=== PATIENT | female | born 1955 | race Caucasian/White ===

== ENCOUNTER 2018-06-11 07:11 | Outpatient (CLI) | payer MEDICARE, BC, SELFPAY ==
[2018-06-11 07:40] LABS: Abs Immature Grans 0.01 k/cumm (0.0-0.09); Absolute Basophil Count 0.02 k/cumm (0.0-0.2); Absolute Eosinophil Count 0.15 k/cumm (0.0-0.7); Absolute Lymphocyte Count 1.72 k/cumm (1.2-3.4); Absolute Monocyte Count 0.57 k/cumm (0.11-0.7); Absolute Neutrophil Count 4.25 k/cumm (1.2-6.7); Basophils % 0.3; Eosinophils % 2.2; HCT 41.3 % (36.0-46.0); HGB 13.8 g/dL (12.0-15.5); Immature Grans % 0.1; Lymphocytes % 25.6; Mean Corp. HGB Concentration 33.4 g/dL (32.0-36.0); Mean Corpuscular Hemoglobin 28.3 pg (27.0-33.0); Mean Corpuscular Volume 84.6 fL (80-95); Mean Platelet Volume 9.7 fL (8.0-11.0); Monocytes % 8.5; Neutrophils % 63.3; Platelet Count 290 x1000/uL (130-400); RBC 4.88 m/cumm (4.00-5.20); RBC Distribution Width 13.2 % (11.7-14.6); White Blood Cell Count 6.72 k/cumm (4.4-10.8)
[2018-06-11 08:39] LABS: ALT 23 U/L (12-78); AST 17 U/L (15-37); Alkaline Phosphatase 74 U/L (46-116); Anion Gap 8.2 mmol/L (3-11); BUN 14 mg/dL (7-18); Bilirubin, Total 0.6 mg/dL (0.2-1.0); CO2 28.8 mmol/L (21.0-32.0); CREATININE 0.71 mg/dL (0.55-1.02); Calcium 9.1 mg/dL (8.5-10.1); Chloride 101 mmol/L (98-107); Cholesterol 152 mg/dL (50-200); Glucose 108 mg/dL (70-100); HDL Cholesterol 78 mg/dL (40-60); LDL CHOLESTEROL 61 mg/dL (<100); Sodium 138 mmol/L (136-145); TSH 3.74 uIU/mL (0.358-3.74); Total Protein 7.3 g/dL (6.4-8.2); Triglyceride 34 mg/dL (30-150)
[2018-06-11 08:53] LABS: Vitamin D 25 Total 43.3 ng/ml (30-100)
[2018-06-11 11:17] LABS: Hemoglobin A1C 5.6 % (4.5-6.2)
== END 2018-06-11 07:31 ==
PROVIDERS: PCP Internal Medicine; Visit Provider Internal Medicine
DX: E78.5 Hyperlipidemia, unspecified (principal); I10 Essential (primary) hypertension; E55.9 Vitamin D deficiency, unspecified; E11.9 Type 2 diabetes mellitus without complications
CPT/HCPCS: 36415; 80053; 80061; 82306; 83721; 83036; 84443; 85025

== ENCOUNTER 2019-05-10 02:29 | Outpatient (CLI) | payer OTHER, SELFPAY ==
--- NOTE | 2019-05-10 11:36 | DI.MAMMO_ITS ---
SYMPTOMS/DIAGNOSIS: SCREENING, Z12.31 MAMMOGRAM: Mammograms were interpreted according to the usual protocol including computer analysis with CAD system, tomosynthesis and C view imaging. The breasts are of moderate density with fairly symmetrical distribution of fibroglandular tissue. No dominant mass identified in either breast. A group of benign-appearing microcalcifications seen in the medial retroareolar portion of right breast on CC view is unchanged in comparison with previous examination of April 2018. No significant change seen in either breast. CONCLUSION: No specific evidence of malignancy at this time. Routine screening examinations are suggested at yearly intervals in this age group according to the ACS/ACR guidelines. Category 1, breast density category B. MQSA ASSESSMENT OF FINDINGS: Negative. Category 1. Patient will receive a letter notifying them of these results. BI-RADS category B. There are scattered areas of fibroglandular density.
== END 2019-05-10 02:49 ==
PROVIDERS: PCP Internal Medicine; Visit Provider Internal Medicine
DX: Z12.31 Encounter for screening mammogram for malignant neoplasm of breast (principal)
CPT/HCPCS: 77063; 77067

== ENCOUNTER 2019-06-05 07:30 | Outpatient (CLI) | payer OTHER, SELFPAY ==
[2019-06-05 07:53] LABS: Abs Immature Grans 0.01 k/cumm (0.0-0.09); Absolute Basophil Count 0.04 k/cumm (0.0-0.2); Absolute Eosinophil Count 0.15 k/cumm (0.0-0.7); Absolute Lymphocyte Count 1.62 k/cumm (1.2-3.4); Absolute Monocyte Count 0.43 k/cumm (0.11-0.7); Absolute Neutrophil Count 2.08 k/cumm (1.2-6.7); Basophils % 0.9; Eosinophils % 3.5; Immature Grans % 0.2; Lymphocytes % 37.4; Mean Corp. HGB Concentration 33.3 g/dL (32.0-36.0); Mean Corpuscular Hemoglobin 28.2 pg (27.0-33.0); Mean Corpuscular Volume 84.6 fL (80-95); Mean Platelet Volume 9.8 fL (8.0-11.0); Monocytes % 9.9; Neutrophils % 48.1; Platelet Count 301 x1000/uL (130-400); RBC 4.61 m/cumm (4.00-5.20); RBC Distribution Width 13.9 % (11.7-14.6); White Blood Cell Count 4.33 k/cumm (4.4-10.8)
[2019-06-05 08:40] LABS: ALT 20 U/L (14-59); AST 14 U/L (15-37); Albumin 3.9 g/dL (3.4-5.0); Alkaline Phosphatase 58 U/L (46-116); Anion Gap 8.1 mmol/L (3-11); BUN 13 mg/dL (7-18); Bilirubin, Total 0.5 mg/dL (0.2-1.0); CO2 28.9 mmol/L (21.0-32.0); CREATININE 0.69 mg/dL (0.55-1.02); Calcium 9.2 mg/dL (8.5-10.1); Calculated LDL 76 mg/dL; Chloride 100 mmol/L (98-107); Cholesterol 156 mg/dL (50-200); Glucose 102 mg/dL (70-100); HDL Cholesterol 74 mg/dL (40-60); Potassium 4.2 mmol/L (3.5-5.1); Sodium 137 mmol/L (136-145); TSH 3.76 uIU/mL (0.36-3.74); Total Protein 7.1 g/dL (6.4-8.2); Triglyceride 30 mg/dL (30-150)
[2019-06-05 09:03] LABS: Hemoglobin A1C 5.8 % (4.5-6.2)
[2019-06-06 04:47] LABS: Vitamin D 25 Total 41.6 ng/ml (30-100)
== END 2019-06-05 07:50 ==
PROVIDERS: PCP Internal Medicine; Visit Provider Internal Medicine
DX: I10 Essential (primary) hypertension (principal); E78.2 Mixed hyperlipidemia; R73.09 Other abnormal glucose; E55.9 Vitamin D deficiency, unspecified
CPT/HCPCS: 36415; 80053; 80061; 82306; 83036; 84443; 85025

== ENCOUNTER 2021-02-15 02:30 | Outpatient (CLI) | payer OTHER, SELFPAY ==
--- NOTE | 2021-02-15 | DI.MAMMO_ITS ---
Exam(s) MAMMO SCREENING EXAM: MAMMO SCREENING CLINICAL HISTORY: SCREENING, Z12.31. TECHNIQUE: Bilateral full field digital CC and MLO mammographic images were obtained with 3D tomosyn thesis and utilizing computer aided detection (CAD). COMPARISON: Prior mammograms dating back to 2010, the most recent being May 2019. FINDINGS: Fibroglandular tissue is moderately dense. There is a group of microcalcifications in the right breast slightly medial of center and 0.5 cm in f rom the nipple which is unchanged from prior studies and therefore benign. No new significant radiograph findings in left breast. In the right breast there is a small nodular density measuring approximately 5 x 3 millimeters locate d 6 cm in from the nipple on the MLO view, more evident on prior studies. Possibly a new benign intr amammary lymph node. In addition, there is an oval noncalcified well-defined nodular density in the immediate retroareolar region of the right breast which measures 1.4 by 0.8 cm. More evident on prior studies. No malignant-appearing microcalcification groups is region or elsewhere in either breast. No new arc hitectural distortion or skin thickening-traction. IMPRESSION: Moderately dense fibroglandular tissue. No obvious radiographic evidence of malignancy in left breas t. Two nodular densities right breast as described above. Spot compression views and ultrasound of the right breast recommended. BI-RADS Category 0 - Assessment Incomplete: Need additional imaging evaluation Breast Density - Category C - Heterogeneously dense Breast density Category C or D implies that the patient has dense breast tissue. Dense breast tissue can make it harder to find cancer on a mammogram. Dense breast tissue is also associated with an incr eased risk of breast cancer. This information about the result of the mammogram report was provided to the patient to raise their awareness. Use this report when you speak with the patient about their risks for breast cancer, which includes their family history. At that time, you may recommend additional screening tests (Ultrasoun d or MRI) as these tests may add significant information. A negative radiographic report should not delay biopsy if a dominant or clinically suspicious mass is present. Up to ten percent of cancers are not identified on mammography. A negative report may reinforce clinical impression. Adenosis and dense breasts may obscure an underlying neoplasm. False positive reports average 6 to 10%. Patient will receive a letter notifying them of these results.
--- NOTE | 2021-02-15 | DI.RAD_ITS ---
Exam(s) XR CHEST 2V PA LATERAL EXAM: XR CHEST 2V PA LATERAL CLINICAL HISTORY: CHEST TIGHTNESS,R07.89. TECHNIQUE: 2D digital imaging was performed. COMPARISON: No exams were available for comparison FINDINGS: Heart size is normal. Left lung is clear. However, there is a mass density in right infrahilar region right middle lobe with silhouetting of th e right heart border. This measures approximately 6 by 3 cm. No pleural effusions. IMPRESSION: There is a concerning right para-infrahilar mass. Contrast infused chest CT scan is recommended. DATA REPOSITORY: RADIATION DOSE DELIVERED:
== END 2021-02-15 02:50 ==
PROVIDERS: PCP Internal Medicine; Visit Provider Internal Medicine
DX: Z12.31 Encounter for screening mammogram for malignant neoplasm of breast (principal); R92.8 Other abnormal and inconclusive findings on diagnostic imaging of breast; R07.89 Other chest pain; R91.8 Other nonspecific abnormal finding of lung field
CPT/HCPCS: 77063; 77067; 71046

== ENCOUNTER 2021-02-24 02:50 | Outpatient (CLI) | payer OTHER, SELFPAY ==
--- NOTE | 2021-02-24 | DI.US_ITS ---
Exam(s) US BREAST RT COMPLETE EXAM: US BREAST RT COMPLETE CLINICAL HISTORY: F/U MAMMO, TWO NODULAR DENSITIES,? LYMPH NODE. TECHNIQUE: Complete ultrasound of the right breast was performed incluing all 4 quadrants, the retro areolar region, and the ipsilateral axilla. COMPARISON: Prior mammograms were reviewed. Today's diagnostic mammogram was also reviewed FINDINGS: At the central 6 o'clock position there is a 5 x 5 millimeter round microcyst which corresponds to fi nding in the retroareolar region seen on the mammogram. At the 9 o'clock position there is a benign-appearing 7 x 3 millimeter lymph node which corresponds t o nodule on the mammogram. At 10 o'clock position there is a small hemorrhagic microcyst measuring 3 x 3 millimeters. There are no ominous solid lesions in all 4 quadrants. No significant adenopathy in the right axilla. IMPRESSION: Benign ultrasound findings in the right breast as described above which account for the findings desc ribed on the recent mammogram. Appropriate follow-up is repeat right breast imaging in 6 months. BI-RADS Category 3 - 6 month - Probably Benign Finding: Recommend follow-up mammography in 6 months Breast Density - Category C - Heterogeneously dense Breast density Category C or D implies that the patient has dense breast tissue. Dense breast tissue can make it harder to find cancer on a mammogram. Dense breast tissue is also associated with an incr eased risk of breast cancer. This information about the result of the mammogram report was provided to the patient to raise their awareness. Use this report when you speak with the patient about their risks for breast cancer, which includes their family history. At that time, you may recommend additional screening tests (Ultrasoun d or MRI) as these tests may add significant information. A negative radiographic report should not delay biopsy if a dominant or clinically suspicious mass is present. Up to ten percent of cancers are not identified on mammography. A negative report may reinforce clinical impression. Adenosis and dense breasts may obscure an underlying neoplasm. False positive reports average 6 to 10%. Patient will receive a letter notifying them of these results.
--- NOTE | 2021-02-24 | DI.MAMMO_ITS ---
Exam(s) MAMMO SCREEN CALL BACK UNI EXAM: MAMMO SCREEN CALL BACK UNI-RIGHT CLINICAL HISTORY: F/U MAMMO, MICROCALCIFICATIONS,NEW SMALL NODULAR DENSITIES,? NEW LYMPH NODE. TECHNIQUE: Unilateral spot mammographic images were obtained with 3D tomosynthesis and utilizing [employer] aided detection (CAD). . Right breast Ultrasound was also performed. COMPARISON: Prior mammograms were reviewed. This additional imaging was performed due to findings described on the recent screening mammogram of 02/15/2021. FINDINGS: Additional mammographic views performed todayreveal around 6 millimeter nodular density (which is ale wn to be a 6 o'clock position microcyst on today's ultrasound). The other retroareolar region findin g is less prominent on the additional spot mammographic 3D views today.The other nodular density is s hown to be a benign lymph node on today's ultrasound. The ultrasound also reveals another finding at 10 o'clock position which is a 3 millimeter hemorrhagi c microcyst. Please see separate ultrasound report IMPRESSION: Benign-appearing right breast findings. Please read separate breast ultrasound report Appropriate follow-up is to keep this patient on a yearly mammogram schedule, with earlier imaging if a self detected breast changes noted.. The patient was informed of these findings and recommendations prior to leaving the department today. BI-RADS Category 2 - Benign Findings Breast Density - Category B - Scattered areas of fibroglandular density Breast density Category C or D implies that the patient has dense breast tissue. Dense breast tissue can make it harder to find cancer on a mammogram. Dense breast tissue is also associated with an incr eased risk of breast cancer. This information about the result of the mammogram report was provided to the patient to raise their awareness. Use this report when you speak with the patient about their risks for breast cancer, which includes their family history. At that time, you may recommend additional screening tests (Ultrasoun d or MRI) as these tests may add significant information. A negative radiographic report should not delay biopsy if a dominant or clinically suspicious mass is present. Up to ten percent of cancers are not identified on mammography. A negative report may reinforce clinical impression. Adenosis and dense breasts may obscure an underlying neoplasm. False positive reports average 6 to 10%. Patient will receive a letter notifying them of these results.
== END 2021-02-24 03:10 ==
PROVIDERS: PCP Internal Medicine; Visit Provider Internal Medicine
DX: Z12.31 Encounter for screening mammogram for malignant neoplasm of breast (principal); R92.8 Other abnormal and inconclusive findings on diagnostic imaging of breast; N60.11 Diffuse cystic mastopathy of right breast; R59.0 Localized enlarged lymph nodes
CPT/HCPCS: 76642; 77063; 77067

== ENCOUNTER 2021-05-27 02:17 | Outpatient (CLI) | payer OTHER, SELFPAY ==
--- NOTE | 2021-05-27 | DI.DEXA_ITS ---
Exam(s) XR DEXA BONE DENSITY W/WO FELISA EXAM: XR DEXA BONE DENSITY W/WO FELISA CLINICAL HISTORY: OSTEOPOROSIS SCREENING, Z13.820 TECHNIQUE: Routine DEXA evaluation of the lumbar spine, hip, or forearm. COMPARISON: Prior DXA scans, most recent being July 2014 FINDINGS: Performed on a [employer] unit. Lateral image: No compression fracture evident. Lumbar Spine total T-score: 2.1 . prior 2013 reading was 0.7 Hip total T-score:-0.7. Prior 2013 reading was -0.3 Independent reading at the femoral neck yields a T-score of -0.8 Forearm total T-score: -0.2 IMPRESSION: Bone mineral density measures in the normal range. Fracture risk is low. Note: Any spine fracture indicates 5x risk for subsequent spine fracture and 2x risk for subsequent h ip fracture. World Health Organization criteria for BMD interpretation classify patients: Normal...... T- Score at or above -1.0 Osteopenic... T- Score between -1.0 and -2.5 Osteoporosis... T-Score at or below -2.5
== END 2021-05-27 02:37 ==
PROVIDERS: PCP Internal Medicine; Visit Provider Internal Medicine
DX: Z13.820 Encounter for screening for osteoporosis (principal); M85.88 Other specified disorders of bone density and structure, other site
CPT/HCPCS: 77080

== ENCOUNTER 2021-10-18 00:52 | Outpatient (CLI) | payer OTHER, SELFPAY ==
--- NOTE | 2021-10-18 14:24 | DI.MAMMO_ITS ---
Exam(s) MAMMO DIAGNOSTIC UNI US BREAST RT LIMITED EXAM: MAMMO DIAGNOSTIC UNI CLINICAL HISTORY: ABNL MAMMO R92.8 RIGHT BREAST. TECHNIQUE: Craniocaudal and mediolateral oblique Full Field Digital Mammography views with Computer Aided Diagnosis followed by Tomosynthesis and right breast ultrasound. COMPARISON: 2011 through 24 Feb 2021 FINDINGS: Mammography/Tomosynthesis: Masses/Architectural Distortion: None seen. Microcalcifictions: No suspicious pleomorphic-type are seen. Skin Thickening/Nipple Retraction: None. Right breast US: Echotexture: Normal appearance of the glandular tissue. Shadowing: No suspicious foci. Cyst: 6 millimeters cyst in the 6 o'clock subareolar region. 4 x 3 x 3 cluster of microcysts 10 o'cl ock position 7 cm from the nipple.. Solid lesions: Lymph node measuring 5 x 3 x 6 millimeters 9 o'clock position 8 cm from the nipple. Ductal dilation: None. IMPRESSION: 1. No evidence of malignancy is noted. Benign findings as noted above. 2. Unless there is more urgent need, follow-up screening mammography is recommended, as per [place] [employer] guidelines. Bilateral screening is due in 6 months. 3. The findings were discussed with the patient on the date of the examination. BI-RADS Category 2 - Benign Findings Breast Density - Category C - Heterogeneously dense Breast density category C or D implies that the patient has dense breast tissue. Dense breast tissue is very common and is not abnormal but dense breast tissue can make it harder to find cancer on a ma mmogram. Also, dense breast tissue may increase their breast cancer risk. This information about the result of the mammogram report was provided to the patient to raise their awareness. Use this report when you speak with the patient about their risks for breast cancer, which includes their family hist ory. At that time, you may recommend for more screening tests (Ultrasound or MRI) as they might be us eful based on their risk. A negative radiographic report should not delay biopsy if a dominant or clinically suspicious mass is present. Up to ten percent of cancers are not identified on mammography. A negative report may reinforce clinical impression. Adenosis and dense breasts may obscure an underlying neoplasm. False positive reports average 6 to 10%. Patient will receive a letter notifying them of these results.
== END 2021-10-18 01:12 ==
PROVIDERS: PCP Internal Medicine; Visit Provider Internal Medicine
DX: R92.8 Other abnormal and inconclusive findings on diagnostic imaging of breast (principal)
CPT/HCPCS: 76642; 77061; 77065; G0279

== ENCOUNTER → 2022-02-23 04:02 | Outpatient (CLI) | payer OTHER, SELFPAY ==
--- NOTE | 2022-02-23 13:17 | DI.MAMMO_ITS ---
Exam(s) MAMMO SCREENING EXAM: MAMMO SCREENING CLINICAL HISTORY: SCREENING, Z12.31 TECHNIQUE: Bilateral full field digital CC and MLO mammographic images were obtained with 3D tomosyn thesis and utilizing computer aided detection (CAD). COMPARISON: Available for comparison. FINDINGS: Masses/Architectural Distortion: Stable nodular densities are seen in the right breast. No suspiciou s masses or areas of architectural distortion are present. Microcalcifications: No suspicious pleomorphic-type are seen. Skin Thickening/Nipple Retraction: None. IMPRESSION: 1. No significant interval change with no specific features of malignancy noted. 2. Unless there is more urgent need, screening mammography is recommended, as per [place] [employer] guidelines. BI-RADS Category 1 - Negative Breast Density - Category C - Heterogeneously dense Breast density category C or D implies that the patient has dense breast tissue. Dense breast tissue is very common and is not abnormal but dense breast tissue can make it harder to find cancer on a ma mmogram. Also, dense breast tissue may increase their breast cancer risk. This information about the result of the mammogram report was provided to the patient to raise their awareness. Use this report when you speak with the patient about their risks for breast cancer, which includes their family hist ory. At that time, you may recommend for more screening tests (Ultrasound or MRI) as they might be us eful based on their risk. A negative radiographic report should not delay biopsy if a dominant or clinically suspicious mass is present. Up to ten percent of cancers are not identified on mammography. A negative report may reinforce clinical impression. Adenosis and dense breasts may obscure an underlying neoplasm. False positive reports average 6 to 10%. Patient will receive a letter notifying them of these results.
== END ==
PROVIDERS: PCP Internal Medicine; Visit Provider Internal Medicine
DX: Z12.31 Encounter for screening mammogram for malignant neoplasm of breast (principal)
CPT/HCPCS: 77063; 77067

== ENCOUNTER 2022-06-03 09:24 | Outpatient (REF) | payer OTHER, SELFPAY | END 2022-06-03 09:25 | disposition home or self-care (01) | LOC: LBN 09:24 | PROVIDERS: PCP Internal Medicine; Visit Provider Nurse Practitioner Family | DX: N39.0 Urinary tract infection, site not specified (principal) | CPT/HCPCS: 87077; 87086; 87186 ==

== ENCOUNTER 2023-04-14 14:57 | Outpatient (CLI) | payer MEDICARE, SELFPAY ==
--- NOTE | 2023-04-14 | DI.MAMMO_ITS ---
Exam(s) MAMMO SCREENING EXAM: MAMMO SCREENING CLINICAL HISTORY: SCREENING,M Z12.31. TECHNIQUE: Bilateral full field digital CC and MLO mammographic images were obtained with 3D tomosyn thesis and utilizing computer aided detection (CAD). COMPARISON: Prior mammograms were reviewed. FINDINGS: No new findings in the left breast. In the right breast on the CC view there is an asymmetric density measuring 5 x 5 mm located 4 cm in from the nipple, lateral of center. There are no malignant-appearing microcalcification groups in this region nor elsewhere in either yuki ast. There is no significant architectural distortion nor skin thickening-retraction. IMPRESSION: 1. No radiographic evidence of malignancy in left breast. 2. Right breast nodule more evident on CC images of present study. Spot compression view and ultraso und recommended. BI-RADS Category 0 - Assessment Incomplete: Need additional imaging evaluation Breast Density - Category C - Heterogeneously dense Breast density Category C or D implies that the patient has dense breast tissue. Dense breast tissue can make it harder to find cancer on a mammogram. Dense breast tissue is also associated with an incr eased risk of breast cancer. This information about the result of the mammogram report was provided to the patient to raise their awareness. Use this report when you speak with the patient about their risks for breast cancer, which includes their family history. At that time, you may recommend additional screening tests (Ultrasoun d or MRI) as these tests may add significant information. A negative radiographic report should not delay biopsy if a dominant or clinically suspicious mass is present. Up to ten percent of cancers are not identified on mammography. A negative report may reinforce clinical impression. Adenosis and dense breasts may obscure an underlying neoplasm. False positive reports average 6 to 10%. Patient will receive a letter notifying them of these results.
== END 2023-04-14 15:17 ==
LOC: DI 14:57
PROVIDERS: PCP Internal Medicine; Visit Provider Internal Medicine
DX: Z12.31 Encounter for screening mammogram for malignant neoplasm of breast (principal)
CPT/HCPCS: 77063; 77067

== ENCOUNTER 2023-04-18 01:35 | Outpatient (CLI) | payer MEDICARE, SELFPAY ==
--- NOTE | 2023-04-18 | DI.MAMMO_ITS ---
Exam(s) MG MAMMO SCREEN CALL BACK UNI US BREAST RT LIMITED EXAM: MG MAMMO SCREEN CALL BACK UNI and U/S breast RT limited CLINICAL HISTORY: F/U MAMMO, ASYMMETRIC DENSITY 5 CM FROM NIPPLE. TECHNIQUE: Craniocaudal and mediolateral oblique Full Field Digital Mammography views of the right b reast with Computer Aided Diagnosis followed by Tomosynthesis and right breast ultrasound. COMPARISON: Comparison is made with prior examinations. FINDINGS: Mammography/Tomosynthesis: Masses/Architectural Distortion: There is again seen a well-circumscribed nodule in the outer right b reast on the additional view. It measures approximately 5.2 mm. This can be seen on the mammogram f rom 02/15/2021. No areas of architectural distortion. Microcalcifictions: No suspicious pleomorphic-type are seen. Skin Thickening/Nipple Retraction: None. Limited right breast US: Echotexture: Normal appearance of the glandular tissue. Shadowing: No suspicious foci. Cyst: None. Solid lesions: At the 9 o'clock position 5 cm from the nipple, there is a 5 x 3.2 x 6.2 mm nodule pre sent. It is hypoechoic with a hyperechoic vascular eccentric nodule consistent with an intramammary lymph node. This likely corresponds to the mammographic abnormality. No suspicious solid lesions ar e seen. Ductal dilation: None. IMPRESSION: 1. No definite evidence of malignancy is noted. 2. A six-month follow-up right mammogram is requested for re-evaluation. Ultrasound may be indicated at that time. 3. The findings were discussed with the patient on the date of the examination. BI-RADS Category 3 - 6 month - Probably Benign Finding: Recommend follow-up imaging in 6 months Breast Density - Category C - Heterogeneously dense Breast density Category C or D implies that the patient has dense breast tissue. Dense breast tissue can make it harder to find cancer on a mammogram. Dense breast tissue is also associated with an incr eased risk of breast cancer. This information about the result of the mammogram report was provided to the patient to raise their awareness. Use this report when you speak with the patient about their risks for breast cancer, which includes their family history. At that time, you may recommend additional screening tests (Ultrasoun d or MRI) as these tests may add significant information. A negative radiographic report should not delay biopsy if a dominant or clinically suspicious mass is present. Up to ten percent of cancers are not identified on mammography. A negative report may reinforce clinical impression. Adenosis and dense breasts may obscure an underlying neoplasm. False positive reports average 6 to 10%. Patient will receive a letter notifying them of these results.
== END 2023-04-18 01:55 ==
LOC: DI 01:36
PROVIDERS: PCP Internal Medicine; Visit Provider Internal Medicine
DX: N63.25 Unspecified lump in the left breast, overlapping quadrants (principal); Z12.31 Encounter for screening mammogram for malignant neoplasm of breast
CPT/HCPCS: 76642; 77063; 77067

== ENCOUNTER → 2023-11-07 03:32 | Outpatient (CLI) | payer MEDICARE, SELFPAY ==
--- NOTE | 2023-11-07 | DI.MAMMO_ITS ---
Exam(s) MG MAMMO DIAGNOSTIC UNI EXAM: MG MAMMO DIAGNOSTIC UNI CLINICAL HISTORY: DIAGNOSTIC, 6 MO F/U, F/U ABNL MAMMO, R92.8 TECHNIQUE: Right cc and MLO mammogram images were performed according to the usual protocol includ ing computer analysis with CAD system, tomosynthesis and C-view imaging. COMPARISON: 2013 through 2022 FINDINGS: The right breast is composed of heterogeneously dense fibroglandular tissue No suspicious masses or suspicious microcalcifications are seen. Previously noted area of nodularity superior right breast has decreased significantly in size. No skin thickening or abnormal axillary lymph nodes are seen. IMPRESSION: BI-RADS Category 1, Negative mammogram Yearly screening mammography is recommended, due in 6 months.. Breast Density - Category C - Heterogeneously dense A negative radiographic report should not delay biopsy if a dominant or clinically suspicious mass is present. Up to ten percent of cancers are not identified on mammography. A negative report may reinforce clinical impression. Adenosis and dense breasts may obscure an underlying neoplasm. False positive reports average 6 to 10%. Patient will receive a letter notifying them of these results.
== END ==
PROVIDERS: PCP Internal Medicine; Visit Provider Internal Medicine
DX: Z12.31 Encounter for screening mammogram for malignant neoplasm of breast (principal)
CPT/HCPCS: 77061; 77065; G0279

== ENCOUNTER → 2024-04-15 02:44 | Outpatient (CLI) | payer MEDICARE, SELFPAY ==
--- NOTE | 2024-04-15 | DI.MAMMO_ITS ---
Exam(s) MAMMO SCREENING EXAM: MAMMO SCREENING CLINICAL HISTORY: Screening, Z12.31. TECHNIQUE: Bilateral full field digital CC and MLO mammographic images were obtained with 3D tomosyn thesis and utilizing computer aided detection (CAD). COMPARISON: Prior mammograms were reviewed. FINDINGS: There has been no significant change in the appearance and distribution of the fibroglandular tissue. Previously described small nodular density in the right breast is actually less evident on the presen t study, further evidence that it was benign. There are no new spiculated masses nor malignant appearing microcalcification groups. Benign-appearing microcalcification group in the right breast appears stable. There is no significant architectural distortion nor skin thickening-retraction. IMPRESSION: Benign findings. No radiographic evidence of malignancy. BI-RADS Category 2 - Benign Findings Breast Density - Category B - Scattered areas of fibroglandular density Breast density Category C or D implies that the patient has dense breast tissue. Dense breast tissue can make it harder to find cancer on a mammogram. Dense breast tissue is also associated with an incr eased risk of breast cancer. This information about the result of the mammogram report was provided to the patient to raise their awareness. Use this report when you speak with the patient about their risks for breast cancer, which includes their family history. At that time, you may recommend additional screening tests (Ultrasoun d or MRI) as these tests may add significant information. A negative radiographic report should not delay biopsy if a dominant or clinically suspicious mass is present. Up to ten percent of cancers are not identified on mammography. A negative report may reinforce clinical impression. Adenosis and dense breasts may obscure an underlying neoplasm. False positive reports average 6 to 10%. Patient will receive a letter notifying them of these results.
== END ==
PROVIDERS: PCP Nurse Practitioner Family; Visit Provider Internal Medicine
DX: Z12.31 Encounter for screening mammogram for malignant neoplasm of breast (principal)
CPT/HCPCS: 77063; 77067

== ENCOUNTER → 2024-05-06 14:15 | Outpatient (BNVA) | payer MEDICARE, SELFPAY | PROVIDERS: PCP Nurse Practitioner Family; Referring Provider Nurse Practitioner Family; Visit Provider Surgery | DX: K40.90 Unilateral inguinal hernia, without obstruction or gangrene, not specified as recurrent (principal) | CPT/HCPCS: 99203 ==

== ENCOUNTER 2024-05-06 19:25 | Outpatient (CLI) | payer MEDICARE, SELFPAY ==
[2024-05-06 16:21] LABS: Abs Immature Grans 0.01 10^3/uL (0.0-0.06); Absolute Basophil Count 0.03 10^3/uL (0.0-0.2); Absolute Eosinophil Count 0.15 10^3/uL (0.0-0.7); Absolute Lymphocyte Count 1.76 10^3/uL (1.2-3.4); Absolute Monocyte Count 0.47 10^3/uL (0.1-0.8); Absolute Neutrophil Count 3.45 10^3/uL (1.2-6.7); Basophils % 0.5 %; Eosinophils % 2.6 %; HGB 13.7 g/dL (11.2-15.7); Immature Grans % 0.2 %; MCH 28.1 pg (27.0-33.0); MCHC 33.4 % (32.0-36.0); MCV 84 fL (80-95); Neutrophils % 58.7 %; Platelet Count 245 10^3/uL (130-400); RBC 4.88 10^6/uL (3.93-5.22); RDW 12.8 % (11.7-14.6); RDW-SD 39.4 fL; WBC 5.87 10^3/uL (4.4-10.8)
[2024-05-06 18:16] LABS: Anion Gap 9.1 mmol/L (3-11); BUN 22 mg/dL (7-18); CO2 28.9 mmol/L (21.0-32.0); CREATININE 0.8 mg/dL (0.55-1.02); Chloride 100 mmol/L (98-107); Estimated GFR 79.22 (mL/min/1.73m2); Glucose 93 mg/dL (74-106); Potassium 4.1 mmol/L (3.5-5.1); Sodium 138 mmol/L (136-145)
== END 2024-05-06 19:26 | disposition home or self-care (01) ==
LOC: LBO 19:26
PROVIDERS: PCP Nurse Practitioner Family; Visit Provider Surgery
DX: I34.0 Nonrheumatic mitral (valve) insufficiency (principal); I49.49 Other premature depolarization; E78.5 Hyperlipidemia, unspecified; R73.03 Prediabetes; E55.9 Vitamin D deficiency, unspecified; K57.30 Diverticulosis of large intestine without perforation or abscess without bleeding; K40.90 Unilateral inguinal hernia, without obstruction or gangrene, not specified as recurrent; D25.9 Leiomyoma of uterus, unspecified; M19.90 Unspecified osteoarthritis, unspecified site; G56.01 Carpal tunnel syndrome, right upper limb; D49.89 Neoplasm of unspecified behavior of other specified sites; R11.2 Nausea with vomiting, unspecified; Z98.890 Other specified postprocedural states
CPT/HCPCS: 36415; 80048; 83735; 85025

== ENCOUNTER 2024-06-04 07:45 | Day surgery (SDC) | payer MEDICARE, SELFPAY ==
--- NOTE | 2024-06-03 21:43 | W.PM.DSUDISC ---
Date of service: 06/04/24 Time of Service: 11:25 Discharge Plan Disposition Patient Disposition: Home Condition: Good Discharge Details Reason For Visit: hernia repair Attending Provider: Julieth Burroughs Primary Care Provider: Shantal Davison Home Meds and New Rx's Prescriptions: New tramadol 50 mg tablet 50 mg PO Q4H PRNQty: 14 0RF celecoxib [Celebrex] 200 mg capsule 200 mg PO BID Qty: 60 3RF Continued amlodipine 10 mg tablet 10 mg PO DAILY acetaminophen [Tylenol Extra Strength] 500 mg tablet 500 mg PO DAILY PRN valsartan-hydrochlorothiazide 1 EACH tablet 1 tab-cap PO DAILY cholecalciferol (vitamin D3) [Vitamin D3] 2,000 UNIT capsule 1,000 unit PO DAILY rosuvastatin [Crestor] 5 mg tablet 5 mg PO DAILY ascorbic acid (vitamin C) 1,000 mg tablet,chewable 500 mg PO DAILY Discontinued celecoxib [Celebrex] 200 mg capsule 200 mg PO DAILY Discharge Instructions Additional Instructions: Dr. Burroughs HERNIA REPAIR ? POSTOPERATIVE INSTRUCTIONS Patients who have this type of surgery can usually be expected to return to work within two weeks and have minimal amounts of discomfort. ? ACTIVITY: The day of surgery should be spent resting. However, you can be up for short periods of time, I.E., going to the bathroom or kitchen. Avoid lifting or straining. On the day following surgery, you can be up and about as desired. ? LIFTING: Restrict your lifting to no more than five (5) pounds for two weeks after surgery. ??We will decide when you are done with restrictions and when you can return to work, at your follow-up appointment.? No sexual activity for two weeks.? ? DIET: There are no dietary restrictions following surgery. However, you may want to start with small amounts of liquids to avoid nausea the day of surgery. ? INCISION CARE: You will notice purple skin glue closing the incision.? Do not peel this off- it will wear off on its own.? After 24 hours you may shower. The dressing may be replaced for comfort, but is not necessary. ?An ice bag may be applied to the incision for 72 hours following surgery. ? SIGNS OF INFECTION: It is not unusual to have some black and blue discoloration of the skin around the incision, but also into the vulva.? ?It will slowly disappear. If you have any increased redness, drainage, fever (above 100 degrees), please contact your doctor for an examination. ? DISCOMFORT: You may expect to have some mild discomfort at the incision sight. If severe pain develops you should contact your doctor for further instructions. ? URINATION: Patients who have surgery occasionally have problems urinating. If you experience problems and are not able to urinate within 6 hours following your surgery, please call your doctor immediately or go to your nearest Emergency Room for evaluation. ? DRIVING: NO driving for three (3) days after surgery, or if you are still taking narcotic pain medication.? ? MEDICATIONS: Alternate Tylenol 1000mg by mouth every 8 hours and celebrex 200mg every 12 hrs. ?Take the Tylenol and celebrex continuously for the first 72hrs- not just when you have pain.? Use the tramadol for breakthrough pain/pain >7.? Use ICE!?? Twenty minutes on, and then off, continuously for the first 72hours. If you are taking narcotic pain medication, follow the instructions on the label and do not drive. Narcotic Pain medications can make you very constipated. Make sure you are moving your bowels daily. If not, take Miralax or Milk of Magnesia.?? Anesthesia also makes you very constipated.? Take a dose of milk of magnesia the morning after surgery. ? REPORT: Unusual swelling, severe pain, unresolved nausea, signs of infection, or difficulty in urination to your surgeon. Follow up in clinic with Dr. Burroughs in 2 weeks.? [phone] Activity:: see above Remove Dressings/Wound Care:: 24 hours Shower/Bathe:: 24 hours Diet:: Carb Counting Discharge Orders Discharge Orders: Discharge Order (Routine); Ordered 06/03/24 Ordered By: Julieth Burroughs DS: Diagnosis Discharge Diagnosis (1) HTN (hypertension): Status: Chronic (2) Mild mitral valve regurgitation: Status: Acute (3) Prediabetes: Status: Acute (4) Hyperlipidemia: Status: Acute (5) Premature beats: Status: Acute (6) GERD (gastroesophageal reflux disease): Status: Chronic (7) PONV (postoperative nausea and vomiting): Status: Acute (8) Diverticulosis of sigmoid colon: Status: Acute (9) Hernia, inguinal, right: Status: Acute Asessment and Plan: The patient is doing well post-op from their Right inguinal hernia.? They are having no nausea or vomiting. They are tolerating liquids and a snack. The pt is not having any chest pain or SOB.? Their pain is adequately controlled. They have been able to urinate.? ?HEENT:? no eye pain/drainage/redness/swelling. Mild sore throat ?Cardio- NSR, no chest pain, BP stable- see VS record ?Pulm: no sob or productive cough. No hemoptysis ?Incision- dressing is c/d/i w/ no excessive bleeding or drainage ?I discussed with the patient the findings at the time of surgery and the patient?s progress. ?We reviewed expectations at home; what the patient could expect for recovery time, and in the post-operative period.? We discussed the importance of walking to avoid blood clots and pneumonia.? We discussed and reviewed the patient's post-operative wound care and dressing needs.?? We reviewed their step-montero pain management plan, Rx called to the pharmacy of their choice.? We reviewed activity and limitations-see discharge instructions. We reviewed warning signs, and when to seek medical attention- see d/c instructions.?? Patient was given a postoperative follow-up appointment. Patient verbalized understanding of their postoperative instructions, how do to take care of themselves and their incision, and the pain management plan. Please see discharge instructions.? 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
[2024-06-04] VITALS (11 sets, daily range): BP systolic 119–152; BP diastolic 65–79; PULSE 68–75; RESP 12–23; TEMP 36.1–36.8; O2SAT 96–99; BMI 26.2
[2024-06-04] MEDS: Acetaminophen 500 MG TAB 1000 MG PO (08:32)
[2024-06-04] MEDS: Gabapentin 300 MG CAP 600 MG PO (08:32)
--- NOTE | 2024-06-04 09:45 | ANES.PREOP_ITS ---
General Info Date of Service Date Performed: 06/04/24 Height: 5 ft 1 in Weight: 63 kg Body Mass Index (BMI): 26.2 Surgical Procedure: Operation Date: 06/04/24 09:40 Proposed Procedure Side Surgeon p Herniorrhaphy Inguinal w/MESH Right Julieth Burroughs, Meds Allergies and Home Medications Allergies Allergy/AdvReac Type Severity Reaction Status Date / Time No Known Allergies Allergy Verified 05/31/24 10:37 Home Medication ?Medication ?Instructions ?Recorded cholecalciferol (vitamin D3) 50 1,000 unit PO DAILY 03/28/16 mcg (2,000 unit) capsule (Vitamin D3) valsartan 320 1 tab-cap PO DAILY 03/28/16 mg-hydrochlorothiazide 12.5 mg tablet amlodipine 10 mg tablet 10 mg PO DAILY 05/02/24 ascorbic acid (vitamin C) 1,000 mg 500 mg PO DAILY 05/02/24 chewable tablet rosuvastatin 5 mg tablet (Crestor) 5 mg PO DAILY 05/02/24 acetaminophen 500 mg tablet 500 mg PO DAILY PRN 05/06/24 (Tylenol Extra Strength) celecoxib 200 mg capsule (Celebrex) 200 mg PO DAILY 05/06/24 tramadol 50 mg tablet 50 mg PO Q4H PRN #14 tabs 06/03/24 Current Visit Medications: Current Medications Generic Name Dose Route Start Last Admin Trade Name Freq PRN Reason Stop Dose Admin Acetaminophen 1,000 mg 06/04/24 06:00 06/04/24 08:32 Acetaminophen 500 Mg Tab PO 06/04/24 23:59 1,000 mg PREOP DEVIN Administration Gabapentin 600 mg 06/04/24 06:00 06/04/24 08:32 Gabapentin 300 Mg Cap PO 06/04/24 23:59 600 mg PREOP DEVIN Administration Ringer's Solution 1,000 mls @ 80 mls/hr 06/04/24 06:00 IV 06/04/24 23:59 INFUSION DEVIN Cefazolin Sodium/Dextrose 2 gm in 50 mls @ 100 mls/hr 06/04/24 06:00 Ancef Duplex IVPB 06/04/24 23:59 PREOP DEVIN Ondansetron HCl 4 mg/ Sodium 52 mls @ 200 mls/hr 06/03/24 19:19 Chloride IVPB 07/03/24 19:18 Q6H PRN PRN IV Miscellaneous Supplies 1 each 06/04/24 06:00 Iv Access IV 06/04/24 23:59 DIRECTED DEVIN Morphine Sulfate 2 mg 06/03/24 19:19 Morphine 4 Mg/Ml Syr IVP 07/03/24 19:18 Q1H PRN PRN Sodium Chloride 0 ml 06/04/24 06:00 Normal Saline Flush 10 Ml Syr IV 06/04/24 23:59 PRN PRN Sodium Chloride 0 ml 06/04/24 06:00 Normal Saline 10 Ml Vial IJ 06/04/24 23:59 DIRECTED PRN Sterile Water 0 ml 06/04/24 06:00 Water,Injection,Sterile 10 Ml Vial IJ 06/04/24 23:59 DIRECTED PRN Tramadol HCl 50 mg 06/03/24 19:19 Tramadol 50 Mg Tab PO 07/03/24 19:18 Q6H PRN PRN Pain PFSH Active Problems Active Problems: Problem Status Onset Code PONV (postoperative nausea and vomiting) Acute R11.2, Z98.890 Hernia, inguinal, right Acute K40.90 Prediabetes Acute R73.03 Carpal tunnel syndrome of right wrist Acute G56.01 GERD (gastroesophageal reflux disease) Chronic K21.9 Vitamin D deficiency Acute E55.9 Uterine fibroid Acute D25.9 Premature beats Acute I49.49 Mild mitral valve regurgitation Acute I34.0 Arthropathy Acute M12.9 Arthritis Acute M19.90 Diverticulosis of sigmoid colon Acute K57.30 Hyperlipidemia Acute E78.5 HTN (hypertension) Chronic Medical History Medical History Thymoma April 13 2021, [place] Cardiac murmur Per pt. states PCP benign records from [place] Surgical History Surgical History Mediastinal mass excision 2020-Thymoma Hx of tonsillectomy S/P repair of anterior cruciate ligament , Ectopic Arthroplasty of knee Tobacco Smoking/Tobacco Use Status: Never Second hand exposure: Yes Alcohol Alcohol Intake: current Alcohol intake frequency: 0-2 drinks per day Alcohol type: wine and hard liquor Substance Use Substance use type: does not use Prental History History 1 Para 0 Hx # Term Pregnancies Multiple births Hx # Pregnancies Ectopic pregnancies AB induced Hx Number of Living Children AB spontaneous Vital Signs and Lab Results Vital Signs Most Recent Vital Signs in EMR: Most Recent Vital Signs Temp Pulse Resp BP Pulse Ox 36.8 C 75 20 147/67 H 98 06/04/24 08:10 06/04/24 08:10 06/04/24 08:10 06/04/24 08:10 06/04/24 08:10 Lab Results Blood Type / Crossmatch: No Data to Display Complete Blood Count: White Blood Count 5.87 10^3/uL (4.4-10.8) 05/06/24 16:03 Red Blood Count 4.88 10^6/uL (3.93-5.22) 05/06/24 16:03 Hemoglobin 13.7 g/dL (11.2-15.7) 05/06/24 16:03 Hematocrit 41.0 % (36.0-46.0) 05/06/24 16:03 Platelet Count 245 10^3/uL (130-400) 05/06/24 16:03 Complete Metabolic Panel: Sodium 138 mmol/L (136-145) 05/06/24 16:03 Potassium 4.1 mmol/L (3.5-5.1) 05/06/24 16:03 Chloride 100 mmol/L (98-107) 05/06/24 16:03 Carbon Dioxide 28.9 mmol/L (21.0-32.0) 05/06/24 16:03 BUN 22 mg/dL (7-18) H 05/06/24 16:03 Creatinine 0.8 mg/dL (0.55-1.02) 05/06/24 16:03 Est GFR (CKD-EPI 2020) 79.22 (mL/min/1.73m2) 05/06/24 16:03 Magnesium 2.0 mg/dL (1.8-2.4) 05/06/24 16:03 Calcium 10.0 mg/dL (8.5-10.1) 05/06/24 16:03 Glucose 93 mg/dL (74-106) 05/06/24 16:03 Liver Function Panel: No Data to Display Coagulation Panel: No Data to Display Cardiac Panel: No Data to Display Arterial Blood Gas: No Data to Display Venous Blood Gas: No Data to Display Pancreas Panel: No Data to Display Thyroid Panel: No Data to Display Infectious Disease: No Data to Display Blood Cultures: No Data to Display Toxicology Panel: No Data to Display Anesthesia Assessment and Plan Anesthesia History Personal History: No History of Anesthesia Complications Family History: No Family History of Anesthesia Complications Exercise Tolerance Exercise Tolerance: Metabolic Equivalents>4 Pertinent Negatives Pertinent Negatives: No Major Pulmonary Symptoms or Complaints Cardiac & Pulmonary Exam Cardiac Exam: Heart Murmur Present Pulmonary Exam: Clear Bilateral Breath Sounds Implantable Cardiac Device Does patient have a Pacemaker or an ICD?: No Airway Exam Known Difficult Airway: No Mallampati Class: 1 Mouth Opening: Normal (> 3cm) Thyromental Distance: Greater than 3 cm Neck Range of Motion: Full ROM Neck Circumference: Normal Teeth Condition: Normal Dentition ASA Classification ASA Score: ASA 2 Emergency Case?: No NPO Status NPO Status: NPO Clears >2 hours, Solids >8 hours Anesthesia Plan Resuscitation Status: Full Code Anesthesia Technique: General Anesthesia Airway Planned: LMA Pain Management: Surgeon and patient request nerve block Monitors Used: Standard Monitors and SedLine
[2024-06-04] MEDS: Lactated Ringers 1,000 ML 80 ML IV (10:00)
[2024-06-04] MEDS: ceFAZolin 2 GM/50 ML BAG IVPB (10:29)
[2024-06-04] MEDS: Bupivacaine 0.25% Pres-Free W/EPI 30 ML VIAL (10:53)
--- NOTE | 2024-06-04 11:00 | W.ANESNERVE ---
Nerve Block Single Injection Procedure Date and Time Date Performed: 06/04/24 Procedure Start: 10:28 Location Where Procedure Performed Procedure Location: Operating Room Procedure Stop: :31 Reason Performed: Postoperative Analgesia Requesting Provider: Julieth Burroughs Timeout Performed Timeout Performed: Yes Monitoring Used ECG, Blood Pressure, SpO2, ETCO2 and See EMR for corresponding vital signs Sterility Sterility: Hand Hygiene, Surgical Cap, Surgical Mask, Sterile Gloves and Chlorhexidine Sedation Given During Procedure Sedation Given (Indicate Dose Given): No Sedation given Patient Mental Status Patient Mental Status: Performed under general anesthesia Nerve Block 1st Nerve Block: Laterality: Right Block Type: TAP Unilateral Ultrasound Image Saved?: Yes Needle / Catheter Used: 100mm SonoPlex II Local Anesthetic Bolus (Indicate Dose Given): Bupivacaine 0.25% Dose:: 20mL Additives (Indicate Dose Given): None Ultrasound: Sterile probe cover and gel used Nerve Stimulator: Not Used Paresthesia: None Procedure Tolerated: No Complications Procedure Outcome: Successful Procedure Comment: Rose López CHEMICAL PROJECT ENGINEER Performed By: Mireya Erickson
--- NOTE | 2024-06-04 11:29 | ROE_ITS ---
Date of service: 06/04/24 Time of Service: 11:29 Operative Note Operative Note DATE OF PROCEDURE: 06/04/24 PRE-OP DIAGNOSIS: right inguinal hernia POST-OP DIAGNOSIS: same PROCEDURE: open right inguinal hernia SURGEON: Julieth Shi WEBFOCUS DEVELOPER: Haley Gamez ANESTHESIA TYPE: Local By Surgeon, General LMA/ETT and Primary Nerve Block Refer to Anesthesia Record ESTIMATED BLOOD LOSS: 3 PATHOLOGY: none sent COMPLICATIONS: None Patient was transported to: PACU Patient's condition: stable Procedure Description: INDICATIONS: The pt is here today for surgery regarding symptomatic --- inguinal hernia that has failed outpatient conservative medical management and he is here today for repair. Informed consent was obtained, explaining risks and benefits of the procedure including but not limited to bleeding, infection, pneumonia, blood clots, chronic pain, chronic numbness, damage to testicle resulting in removal, recurrence of hernia, reaction to Mesh necessitating removal, and other unforetold complications, and complications of anesthesia-which were addressed by the APPELLATE COURT CLERK. The patient is marked in preOp prior to the procedure DESCRIPTION OF PROCEDURE:? The pt is then brought to the operative room suite. Anesthesia was administered per the Department of Anesthesia. The patient was prepped and draped in the usual sterile fashion using ChloraPrep scrub solution. Pause for the cause was done. He did receive preop IV antibiotics, and 30 mL of .25% Marcaine w/ epinephrine was used for local anesthetization. A #12 blade was used to make an incision over the external ring. Electrocautery used to provide hemostasis and dissect down to the fascia. The fascia was opened using cautery. The nerve was identified and was obliterated using electrocautery. ?Electro- cautery is used to provide hemostasis. There is a small direct hernia pushing through the floor. The sac is elevated and dissected out, and scored and inverted. A medium mesh plug was then cut to size, and placed into the defect and oversewn into transversalis. The patch was then placed on the floor and sewn in using 2-0 Vicryl sewn into the pubic tubercle and the shelving portions of the inguinal ligament.? The tails of the mesh are tucked under the external oblique. ?The wound was copiously irrigated. There was no bleeding noted. The drain was placed. The drain is removed.? All structures are returned to there nomral anatomic position.? The external oblique is than closing in a running fshion with 2-0 vicryl, taking care to not incorporate the nerve into the incision. Deep tissue was approximated with 3-0 Vicryl and skin was approximated with 4-0 Monocryl in a running subcuticular fashion. Skin glue was applied. the patient tolerated the procedure without complications to recovery in stable condition. JULIETH SHI, DO
--- NOTE | 2024-06-04 13:14 | W.ANESPOSTOP ---
Postoperative Evaluation Date, Time and Location Date Performed: 06/04/24 Time Performed: 13:14 Patient Location: Day Surgery Unit Vital Signs Most Recent Imported Vital Signs: Most Recent Vital Signs Temp Pulse Resp BP Pulse Ox 36.1 C L 69 18 152/79 H 97 06/04/24 12:05 06/04/24 12:05 06/04/24 12:05 06/04/24 12:06 06/04/24 12:05 Pain Score Most Recent Pain Score: Most Recent Pain Score Pain Level 0 06/04/24 11:51 Assessment Mental Status: Awake (Alert & Oriented to Patient Baseline) Airway and Respiratory Function: Patent airway with normal (patient baseline) respiratory exam Cardiovascular Function: Hemodynamically Stable Hydration Status: Adequately Hydrated Nausea & Vomiting: No Nausea or Vomiting Pain: Pain is tolerable per patient Peripheral Nerve Block: Regional nerve block not resolved at time of post operative discharge
== END 2024-06-04 13:25 | disposition home or self-care (01) ==
LOC: SUR 07:45
PROVIDERS: PCP Nurse Practitioner Family; Visit Provider Surgery
PROC: (CPT 49505; principal; 2024-06-04 09:30)
DX: K40.90 Unilateral inguinal hernia, without obstruction or gangrene, not specified as recurrent (principal); I10 Essential (primary) hypertension
CPT/HCPCS: 49505; 76942; C1781; J0665; J0690; J1100; J1885; J2001; J2250; J2371; J2405; J2704

== ENCOUNTER → 2024-06-17 13:26 | Outpatient (BNVA) | payer MEDICARE, SELFPAY | PROVIDERS: PCP Nurse Practitioner Family; Referring Provider Nurse Practitioner Family; Visit Provider Surgery | DX: Z48.817 Encounter for surgical aftercare following surgery on the skin and subcutaneous tissue (principal) ==

== ENCOUNTER → 2024-10-08 09:59 | Outpatient (BNVA) | payer MEDICARE, SELFPAY | PROVIDERS: PCP Nurse Practitioner Family; Referring Provider Nurse Practitioner Family; Visit Provider Nurse Practitioner Adult Health | DX: G56.01 Carpal tunnel syndrome, right upper limb (principal) | CPT/HCPCS: 95908; 99214 ==

== ENCOUNTER 2024-10-17 15:28 | Outpatient (CLI) | payer MEDICARE, SELFPAY ==
--- NOTE | 2024-10-17 11:00 | DI.RAD_ITS ---
Exam(s) XR WRIST RT COMPLETE EXAM: XR WRIST RT COMPLETE CLINICAL HISTORY: thumb pain. TECHNIQUE: 2D digital imaging was performed. Three views. COMPARISON: No exams were available for comparison FINDINGS: BONES: No acute fracture is present. No bony destructive lesion is seen. JOINTS: Severe degenerative changes at the 1st carpal marked metacarpal joint. There is prominent pe riarticular spurring as well as deformity of the trapezium and base of 1st metacarpal. There also sp yumiko severe changes at the scaphoid trapezium trapezoid joint. SOFT TISSUE: Normal. 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 DATA REPOSITORY: RADIATION DOSE DELIVERED:
== END 2024-10-17 15:29 | disposition home or self-care (01) ==
LOC: DIORS 15:28
PROVIDERS: PCP Nurse Practitioner Family; Referring Provider Nurse Practitioner Family; Visit Provider Student in an Organized Health Care Education/Training Program
DX: M18.11 Unilateral primary osteoarthritis of first carpometacarpal joint, right hand (principal); G56.01 Carpal tunnel syndrome, right upper limb
CPT/HCPCS: 99214; 73110

== ENCOUNTER 2024-11-01 09:56 | Day surgery (SDC) | payer MEDICARE, SELFPAY ==
--- NOTE | 2024-11-01 09:59 | PDOC.DSDIS_ITS ---
Date of service: 11/01/24 Discharge Plan Disposition Patient Disposition: Home Condition: Good Discharge Details Reason For Visit: R ECTR Attending Provider: Jai Wesley Primary Care Provider: Shantal Davison Home Meds and New Rx's Prescriptions: New acetaminophen 500 mg tablet 1,000 mg PO TID Qty: 90 0RF ibuprofen 600 mg tablet 600 mg PO TID PRN (Reason: pain) Qty: 90 0RF hydrocodone-acetaminophen 5-325 mg tablet 1 tab PO Q6H PRN (Reason: pain) Qty: 3 0RF Continued amlodipine 10 mg tablet 10 mg PO DAILY valsartan-hydrochlorothiazide 1 EACH tablet 1 tab-cap PO DAILY cholecalciferol (vitamin D3) [Vitamin D3] 2,000 UNIT capsule 1,000 unit PO DAILY rosuvastatin [Crestor] 5 mg tablet 5 mg PO DAILY ascorbic acid (vitamin C) 1,000 mg tablet,chewable 500 mg PO DAILY Discontinued acetaminophen [Tylenol Extra Strength] 500 mg tablet 500 mg PO DAILY PRN Discharge Instructions Stand Alone Forms: Lupillo Hernandez Tunnel Release Referrals: Jai Wesley MD [ [facility] STAFF PHYSICIAN] - Activity:: Activity as Tolerated Remove Dressings/Wound Care:: 48 hours Shower/Bathe:: 48 hours Diet:: As Tolerated Discharge Orders Discharge Orders: Discharge Order (Routine); Ordered 11/01/24 Ordered By: Rob Persaud DS: Diagnosis Discharge Diagnosis (1) Carpal tunnel syndrome of right wrist: Status: Acute
[2024-11-01 10:55] VITALS: BP 149/77; PULSE 81; RESP 18; TEMP 36.8; O2SAT 99
[2024-11-01] MEDS: Cephalexin 500 MG CAP 1000 MG PO (11:18)
[2024-11-01] MEDS: Lidocaine 1% Multi-Dose W/EPI 1/100,000 50 ML VIAL (13:03)
[2024-11-01] MEDS: Sodium Bicarbonate 50 MEQ/50 ML VIAL (13:03)
[2024-11-01 13:13] VITALS: BP 139/69; PULSE 92; RESP 18; TEMP 36.9; O2SAT 94
--- NOTE | 2024-11-01 13:25 | W.PM.OP ---
Operative Note Operative Note PRE-OP DIAGNOSIS: Right Carpal Tunnel Syndrome POST-OP DIAGNOSIS: same PROCEDURE: Right Endoscopic Carpal Tunnel Release SURGEON: Jai Wesley ANESTHESIA TYPE: Local By Surgeon Refer to Anesthesia Record ESTIMATED BLOOD LOSS: 0 PATHOLOGY: none sent TOURNIQUET TIME: 7 COMPLICATIONS: None Patient was transported to: same day Patient's condition: stable Indications: I have seen Kira in clinic for symptoms of carpal tunnel syndrome. The numbness, tingling, and pain limited function. Clinical exam findings confirmed the diagnosis of carpal tunnel syndrome. Nonoperative measures such as bracing, time, activity modifications had been tried but disability and pain persisted. I discussed carpal tunnel release with the patient. I reviewed the risks of the procedure to include, but not limited to, bleeding, infection, pain, stiffness, incomplete release, damage to nerves or vessels, persistent numbness, recurrence. Despite these risks, the patient elected to proceed. Findings: There was tightened carpal tunnel. This was dilated and released successfully with the endoscopic with increased space within the tunnel. The antebrachial fascia was released proximally freeing the median nerve at the wrist. Procedure Description: Kira was greeted in the preoperative holding area where the correct side was identified and marked. The consent was reviewed with the patient and signed. The history and physical was updated. All questions were answered. She was taken back to the operating room. The patient was placed into the supine position on the operating room table with the right arm on an arm board. A nonsterile tourniquet was placed high onto the arm. All bony prominences were well padded. Prophylactic antibiotics in the form of Cefazolin were administered. The right arm was then prepped with Chloraprep and draped in a standard fashion with stockinette and extremity drape. A timeout to confirm correct identity, side and site, procedure, allergies, anesthesia, and medical concerns was performed. The surgical site was marked in the volar wrist creases in line with the radial border of the fourth ray. This area was anesthetized with approximately 6cc of 1% Lidocaine. The limb was then exsanguinated with an Esmarch. The skin was incised with a 15 blade, approximately 1cm. The skin only was cut and the deeper tissue was dissected bluntly with a tenotomy scissor, avoiding passing nerve and venous structures. The fascia was penetrated and opened bluntly. A two-prong skin hook was placed under this proximal fascial edge. A series of hamate finders were used to identify and dilate the carpal tunnel. Synovial elevator was used to free synovial attachments to the underside of the transverse carpal ligament. My thumb was kept in the palm to vadim the distal extent of the carpal tunnel and correctly position the hand. The Microaire endoscope was inserted without difficulty and without resistance. Excellent visualization showed horizontally running fibers of the transverse carpal ligament (TCL). The distal extent of the TCL was visualized and the end of the scope palpated with the thumb. The blade was elevated and withdrawn from distal to proximal. The TCL was split into two flaps. The endoscope was reinserted to confirm complete release and any remnant ligament was incised. The scope was withdrawn and the proximal aspect of the carpal tunnel was grossly inspected and appeared release with the median nerve visible. The antebrachial fascia at the level of the wrist was then freed from the overlying skin and then the underlying median nerve with blunt dissection. This was transected longitudinally for about 3cm proximal to the wrist incision. The wound was then irrigated with easy flow of irrigant distally and proximally. The incision was closed with a single 4-0 Nylon suture. The wound was dressed with Xeroform, Gauze, Kerlix and Behzad. The tourniquet was deflated with the initial dressing and held with some pressure. Blood flow returned easily to all digits with capillary refill less than 2 seconds. The patient tolerated the procedure well and was returned to the Same Day Surgery area in a stable condition suffering no known complication. Date of Procedure: 11/01/24
== END 2024-11-01 13:22 | disposition home or self-care (01) ==
PROVIDERS: PCP Nurse Practitioner Family; Visit Provider Student in an Organized Health Care Education/Training Program
PROC: 01N54ZZ Release Median Nerve, Percutaneous Endoscopic Approach (ICD-10-PCS; CPT 29848; principal; 2024-11-01 12:00)
DX: G56.01 Carpal tunnel syndrome, right upper limb (principal)
CPT/HCPCS: 29848; J2004

== ENCOUNTER → 2024-11-08 10:09 | Outpatient (BNVA) | payer MEDICARE, SELFPAY | PROVIDERS: PCP Nurse Practitioner Family; Referring Provider Nurse Practitioner Family | DX: Z47.89 Encounter for other orthopedic aftercare (principal); M79.641 Pain in right hand | CPT/HCPCS: 99024 ==

== ENCOUNTER 2025-04-21 00:39 | Outpatient (CLI) | payer MEDICARE, SELFPAY ==
--- NOTE | 2025-04-21 07:11 | DI.MAMMO_ITS ---
Exam(s) MAMMO SCREENING EXAM: MAMMO SCREENING CLINICAL HISTORY: screening,Z12.39 TECHNIQUE: Mammograms were interpreted according to the usual protocol including computer analysis with CAD system, tomosynthesis and C-view imaging. COMPARISON: 2015 through 2023 FINDINGS: The breasts are composed of scattered fibroglandular densities, Breast Density category B. No suspicious masses or suspicious microcalcifications are seen. No skin thickening or abnormal axillary lymph nodes are seen. There has been no significant change from prior exams. IMPRESSION: BI-RADS Category 1, Negative mammogram Yearly screening mammography is recommended. Breast Density - Category B - There are scattered areas of fibroglandular density. Breast density Category C or D implies that the patient has dense breast tissue. Dense breast tissue can make it harder to find cancer on a mammogram. Dense breast tissue is also associated with an increased risk of breast cancer. This information about the result of the mammogram report was provided to the patient to raise their awareness. Use this report when you speak with the patient about their risks for breast cancer, which includes their family history. At that time, you may recommend additional screening tests (Ultrasound or MRI) as these tests may add significant information. A negative radiographic report should not delay biopsy if a dominant or clinically suspicious mass is present. Up to ten percent of cancers are not identified on mammography. A negative report may reinforce clinical impression. Adenosis and dense breasts may obscure an underlying neoplasm. False positive reports average 6 to 10%. Patient will receive a letter notifying them of these results.
== END 2025-04-21 00:59 ==
LOC: DI 00:39
PROVIDERS: PCP Nurse Practitioner Family; Visit Provider Nurse Practitioner Family
DX: Z12.31 Encounter for screening mammogram for malignant neoplasm of breast (principal); R92.323 Mammographic fibroglandular density, bilateral breasts
CPT/HCPCS: 77063; 77067